=== PATIENT | male | born 1945 | race Caucasian/White ===

== ENCOUNTER 2017-07-21 12:39 | Emergency (ER) | payer OTHER, MEDICAID ==
[~2017-07-21] VITALS: Ht 170.2 cm; Wt 86.0 kg
[~2017-07-21 12:39] MED LIST: AMLO5TAB88 PO; ASPI-1079 PO; DOCU-267 PO; GABA-290 PO; LOSA1TAB37 PO; MONT10TA24 PO; PRAV20TA57 PO; RANI150T7 PO
[2017-07-21 12:45] VITALS: BP 113/55
== END 2017-07-21 14:12 | disposition home or self-care (01) ==
LOC: ER 12:48
DX: Z04.3 Encounter for examination and observation following other accident (principal); I10 Essential (primary) hypertension; I25.2 Old myocardial infarction; Z79.82 Long term (current) use of aspirin; W01.0XXA Fall on same level from slipping, tripping and stumbling without subsequent striking against object, initial encounter; Y93.89 Activity, other specified; Y92.091 Bathroom in other non-institutional residence as the place of occurrence of the external cause; Y99.8 Other external cause status
CPT/HCPCS: 99283